=== PATIENT | male | born 1960 | race Caucasian/White ===

== ENCOUNTER 2018-07-03 13:10 | Outpatient (REF) | payer OTHER, SELFPAY ==
--- NOTE | 2018-07-03 12:00 | SKI_PTH ---
PATIENT: Hossein Sams LOC: [facility] U#:[id number] AGE/SX: 58/M ROOM: RE07/03/[address]: Yifan Hager : 1960 BED: DIS: 07/03/2018 SPEC #: [id number] RECD: 07/04/18 12:53 STATUS: STEPHANIE REQ #: [id number] JERZY: 07/03/18 12:[address]: Yifan Hager DEPT: Surgical Specimen RECD BY: Johana Guerra ENTERED: 07/04/18 12:54 SP TYPE: DUSTIN TRIPP DR: Yimi Mann Tissues: 1 - SKIN BIOPSY(SHAVE/PUNCH) Procedures: SKIN LEVEL 4 Comments: [id number]
== END 2018-07-03 13:30 ==
LOC: LBN 13:10
PROVIDERS: PCP Family Medicine; Visit Provider Internal Medicine
DX: L43.9 Lichen planus, unspecified (principal)
CPT/HCPCS: 88305

== ENCOUNTER 2018-08-08 13:54 | Outpatient (REF) | payer OTHER, SELFPAY ==
[2018-08-08 21:43] LABS: Anion Gap 7.4 mmol/L (3-11); BUN 14 mg/dL (7-18); CO2 29.6 mmol/L (21.0-32.0); CREATININE 0.89 mg/dL (0.70-1.30); Calcium 9.1 mg/dL (8.5-10.1); Chloride 104 mmol/L (98-107); Cholesterol 247 mg/dL (50-200); Glucose 84 mg/dL (70-100); HDL Cholesterol 44 mg/dL (40-60); LDL CHOLESTEROL 173 mg/dL (<100); Potassium 3.8 mmol/L (3.5-5.1); Sodium 141 mmol/L (136-145); Triglyceride 137 mg/dL (30-150)
== END 2018-08-08 14:14 ==
LOC: NCHCN 13:54
PROVIDERS: PCP Family Medicine; Visit Provider Family Medicine
DX: Z00.00 Encounter for general adult medical examination without abnormal findings (principal); Z13.228 Encounter for screening for other metabolic disorders; Z13.220 Encounter for screening for lipoid disorders
CPT/HCPCS: 80048; 80061; 83721

== ENCOUNTER 2019-12-08 14:18 | Outpatient (REF) | payer OTHER, SELFPAY ==
[2019-12-10 17:34] LABS: COVID-19 RT-PCR Result NEGATIVE (Negative)
== END 2019-12-08 14:38 ==
LOC: NCHCN 14:18
PROVIDERS: PCP Family Medicine; Visit Provider Family Medicine
DX: B34.9 Viral infection, unspecified (principal)
CPT/HCPCS: U0003

== ENCOUNTER 2021-07-07 15:43 | Outpatient (REF) | payer OTHER, SELFPAY ==
[2021-07-07 16:08] LABS: Anion Gap 9.5 mmol/L (3-11); BUN 9 mg/dL (7-18); CO2 28.5 mmol/L (21.0-32.0); CREATININE 0.9 mg/dL (0.70-1.30); Calcium 8.9 mg/dL (8.5-10.1); Calculated LDL 134 mg/dL (<100); Chloride 105 mmol/L (98-107); Cholesterol 209 mg/dL (<200); Glucose 84 mg/dL (74-106); HDL Cholesterol 50 mg/dL (40-60); Sodium 143 mmol/L (136-145); Triglyceride 127 mg/dL (<150)
== END 2021-07-07 15:44 | disposition home or self-care (01) ==
LOC: NCHCN 15:43
PROVIDERS: PCP Family Medicine; Visit Provider Family Medicine
DX: Z00.00 Encounter for general adult medical examination without abnormal findings (principal); E78.5 Hyperlipidemia, unspecified
CPT/HCPCS: 80048; 80061

== ENCOUNTER 2023-06-14 20:18 | Outpatient (REF) | payer OTHER, MEDICARE, SELFPAY | END 2023-06-14 20:19 | disposition home or self-care (01) | LOC: NCHCN 20:18 | PROVIDERS: PCP Family Medicine; Referring Provider Internal Medicine; Visit Provider Internal Medicine | DX: N45.1 Epididymitis (principal) | CPT/HCPCS: 87086 ==

== ENCOUNTER 2024-07-10 13:01 | Outpatient (REF) | payer OTHER, MEDICARE, SELFPAY ==
[2024-07-10 14:53] LABS: Anion Gap 4.7 mmol/L (3-11); BUN 7 mg/dL (7-18); CO2 31.3 mmol/L (21.0-32.0); CREATININE 0.9 mg/dL (0.70-1.30); Calcium 9.4 mg/dL (8.5-10.1); Calculated LDL 128 mg/dL (<100); Chloride 109 mmol/L (98-107); Cholesterol 205 mg/dL (<200); Estimated GFR 94.19 (mL/min/1.73m2); Glucose 95 mg/dL (74-106); HDL Cholesterol 50 mg/dL (>or=40); Potassium 4.3 mmol/L (3.5-5.1); Sodium 145 mmol/L (136-145); Triglyceride 136 mg/dL (<150)
== END 2024-07-10 13:02 | disposition home or self-care (01) ==
LOC: NCHCN 13:01
PROVIDERS: PCP Family Medicine; Visit Provider Family Medicine
DX: E78.5 Hyperlipidemia, unspecified (principal)
CPT/HCPCS: 80048; 80061